=== PATIENT | female | born 1955 | race Caucasian/White ===

== ENCOUNTER 2019-12-12 23:33 | Emergency (ER) | payer MEDICARE, SELFPAY ==
[2019-12-12 23:48] VITALS: BP 175/97; PULSE 69; RESP 18; TEMP 36.7; O2SAT 96
[2019-12-12 23:49] VITALS: BP 175/97; PULSE 69; RESP 18; TEMP 36.7; O2SAT 96
--- NOTE | 2019-12-12 23:51 | ED.ALLEREA ---
HPI - Allergic Reaction General Chief complaint: Allergic Reaction Stated complaint: Possible allergic reaction Time Seen by Provider: 12/12/19 23:51 Source: patient and RN notes reviewed Mode of arrival: ambulatory Limitations: no limitations History of Present Illness HPI narrative: patient was having some upper respiratory cold symptoms. She took an [id number] cold/ flu medication. She began having some hives and itching. Some swelling lower lip. No other difficulty breathing MD complaint: allergic reaction and hives Onset (ago): hour(s) (3-4) Exposure: medication Symptoms: rash, itching and lip swelling Severity: moderate Treatment prior to arrival: none Previous Allergic Reaction History: none Related Data Home Medications Medication Instructions Recorded Confirmed No Home Medications 12/12/19 12/12/19 Allergies Allergy/AdvReac Type Severity Reaction Status Date / Time codeine Allergy Unknown Verified 07/24/16 21:56 Review of Systems Review of Systems: All systems reviewed & are unremarkable except as noted in HPI and below Cardiovascular: Cardiovascular: Denies chest pain Respiratory: Respiratory: Denies dyspnea PMFSH Past Medical History Medical History (Updated 12/13/19 @ 00:09 by Allen Mckeon MD) Hypertension Surgical History Surgical History (Updated 12/12/19 @ 23:58 by Allen Mckeon MD) H/O: hysterectomy History of appendectomy History of tonsillectomy Hx of breast reduction, elective Hx of cholecystectomy Social History Social History (Updated 12/12/19 @ 23:58 by Allen Mckeon MD) Smoking status: Never smoker Alcohol intake: never Substance use: never Exam Const: General: healthy appearing, no acute distress and alert Nutritional Appearance: well nourished Orientation/consciousness: patient oriented x3 HENMT: Ears: external ears normal General nose exam: Normal external nose present Mouth: Yes moist mucous membranes and Yes lip abnormal left lower swelling (Mild) Eyes: Conjunctivae: conjunctivae normal Pupils: Equal, round and reactive pupils present EOM: EOMs intact bilaterally Neck: Neck: normal visual inspection Resp: Effort & Inspection: normal respiratory effort Auscultation: clear to auscultation bilaterally Cardio: Rate: regular rate Rhythm: regular rhythm GI: GI Palp: Yes Soft to palpation and No Tenderness to palpation present (GI) Auscultation: normal bowel sounds Back/Spine/Pelvis: Cervical Spine: cervical ROM normal Thoracic/Lumbar Spine: thoraco-lumbar ROM normal Skin: General skin exam: normal color Rashes: rashes noted hives diffuse multiple locations Neuro: General: patient oriented x3, moves all extremities and no focal motor deficits Speech: normal speech Gait exam (Neuro): Normal gait present Extrem: General: normal to inspection and no clubbing, cyanosis or edema Psych: Appearance: well kempt Affect: normal affect Attitude: cooperative Thought content: Yes Normal thought content present Course Vital Signs Vital signs: Vital Signs Temperature 36.7 C 12/12/19 23:48 Pulse Rate 69 12/12/19 23:48 Respiratory Rate 18 12/12/19 23:48 Blood Pressure 175/97 H 12/12/19 23:48 Pulse Oximetry 96 12/12/19 23:48 Temperature 36.7 C 12/13/19 00:11 Pulse Rate 85 12/13/19 00:11 Respiratory Rate 20 12/13/19 00:11 Blood Pressure 170/94 H 12/13/19 00:11 Pulse Oximetry 97 12/13/19 00:11 MDM - Allergic Reaction Differential Diagnosis Differential diagnosis: Likely allergic reaction, angioedema and adverse reaction to drug Discharge Plan Discharge Clinical Impression: Allergic reaction Qualifiers: Encounter type: initial encounter Qualified Code(s): T78.40XA - Allergy, unspecified, initial encounter Patient Disposition: Home, Self-Care Condition: Improved Instructions: Antibiotic Form, General Allergic Reaction (ED) Additional Instructions: may use Benadryl 25 mg over-th
[2019-12-12 23:56] VITALS: BP 160/91; PULSE 72; RESP 18; O2SAT 97
[2019-12-12] MEDS: diphenhydrAMINE HCl INJ 50 MG/ML VIAL 25 MG IM (23:58)
[2019-12-13 00:11] VITALS: BP 170/94; PULSE 85; RESP 20; TEMP 36.7; O2SAT 97
== END 2019-12-13 00:15 | disposition home or self-care (01) ==
PROVIDERS: Emergency Provider Emergency Medicine; PCP Family Medicine
DX: T78.40XA Allergy, unspecified, initial encounter (principal); I10 Essential (primary) hypertension
CPT/HCPCS: 96372; 99282; 99283; J1200

== ENCOUNTER 2020-07-18 19:43 | Emergency (ER) | payer MEDICARE, SELFPAY ==
[2020-07-18] VITALS (18 sets, daily range): BP systolic 127–150; BP diastolic 61–97; PULSE 63–88; RESP 9–20; TEMP 36.8; O2SAT 91–99
--- NOTE | ~2020-07-18 | XR_ITS ---
EXAMINATION: XR chest 2V EXAM DATE: 07/18/2020 20:17 INDICATION: Medial chest pain. COVID +2 weeks ago. Hypertension. Tingling in fingers. TECHNIQUE: Frontal and lateral projections of the chest obtained and reviewed. Comparison is made to prior examination from 10/27/2018. FINDINGS: The lungs are clear. There are no pleural effusions. Cardiac silhouette is prominent but magnified on this AP technique. There is no pneumothorax suspected. The bones and soft tissues are unremarkable. IMPRESSION: No acute cardiopulmonary findings. Reviewed, dictated and finalized at location A. PHATIC FERTILIZER SUPERVISOR
--- NOTE | ~2020-07-18 | CT_ITS ---
EXAMINATION: CTA chest abdomen pelvis EXAM DATE: 07/18/2020 22:06 INDICATION: Chest pain. Fingers tingling. TECHNIQUE: Spiral CT of the chest, abdomen and pelvis was performed following intravenous injection o f 100 mL Omnipaque 350. Axial, coronal and sagittal images were reviewed. Coronal maximum intensity pixel images of chest reviewed. The dose-length product (DLP) for this examination was 1562.46 mGy- cm. The exposure was tailored according to patient size (auto mA exposure control), and iterative re construction (ASIR) was used as additional dose reduction technique. There is no prior study for dilip ellis. FINDINGS: AORTA: The ascending aorta measures 5.0 cm. There is a type A aortic dissection starting at the aorti c root and extending to the origins of the brachiocephalic and left common carotid arteries. No ruptu re. Descending aorta is normal in caliber and without dissection. CHEST: Dependent subsegmental atelectasis. There are no pleural or pericardial effusions. Tracheo bronchial tree is patent. There is no mediastinal, hilar or axillary lymphadenopathy. There is no pneumothorax. There is cardiomegaly. ABDOMEN PELVIS: The liver, spleen, adrenal glands and pancreas are unremarkable. Gallbladder is unre markable. No biliary obstruction. Portal and splenic veins are patent. Kidneys enhance symmetrical ly. There is no hydronephrosis. Left renal peripelvic cysts. The uterus is not identified and has l ikely been surgically resected. The bladder is unremarkable. There is no retroperitoneal or pelvic lymphadenopathy. There are no findings to suggest appendicitis. The stomach and small bowel are unremarkable. There is expected amount of colonic stool. No free intraperitoneal gas. There are no osteoblastic or os teolytic lesions identified. IMPRESSION: Ascending aortic 5.0 cm aneurysm, with type A dissection. I discussed type A aortic dissection, aneurysm with Han Scott MD at 07/18/2020 22:12 BUDGET OFFICER. Reviewed, dictated and finalized at location A. ET OFFICER IMPRESSION: Ascending aortic 5.0 cm aneurysm, with type A dissection. I discussed type A aortic dissection, aneurysm with Han Scott MD at 2020 22:12 BUDGET OFFICER.
--- NOTE | 2020-07-18 19:51 | ECG_ITS ---
Measurements Intervals [place] Rate: 66 P: 0 ID: 185 QRS: -4 QRSD: 106 T: 63 QT: 403 QTc: 425 Interpretive Statements SINUS RHYTHM LOW QRS VOLTAGE IN PRECORDIAL LEADS INFERIOR INFARCT, AGE INDETERMINATE BASELINE ARTIFACT- I, II, III, AVR, AVL, AVF ABNORMAL ECG Electronically Signed On 07-19-2020 7:07:30 HAND BINDER CUTTER by Kalpesh Licona D.O.
[2020-07-18] MEDS: ONDANSETRON INJ 4 MG/2 ML VIAL IV PUSH (20:04)
[2020-07-18] MEDS: MORPHINE SULFATE (*CRX) 2 MG/ML INJ IV PUSH (20:05)
[2020-07-18 20:15] LABS: Basophils Percent Auto 0.4 % (0.2-1.2); Eosinophils Absolute Auto 0.1 K/mm3 (0-0.3); Eosinophils Percent Auto 0.7 % (0-4.4); Hematocrit 41.5 % (37.0-47.0); Hemoglobin 13.9 g/dL (12.0-15.0); Immature Granulocyte Absolute 0.04 K/mm3 (0.00-0.031); Immature Granulocyte Percent A 0.4 % (0-0.5); Lymphocytes Absolute Auto 1.81 K/mm3 (0.9-3.2); Lymphocytes Percent Auto 19.1 % (18.3-44.2); Mean Corpuscular HGB Conc 33.5 g/dl (32-36); Mean Corpuscular Hemoglobin 31.2 pg (26-34); Mean Platelet Volume 9.9 fl (7.4-10.4); Monocytes Absolute Auto 0.8 K/mm3 (0.1-0.6); Monocytes Percent Auto 8.1 % (2.6-8.5); Neutrophils Absolute Auto 6.8 K/mm3 (1.3-6.7); Neutrophils Percent Auto 71.3 % (45.5-73.1); Platelet Count Result 223 k/mm3 (150-375); Red Blood Count 4.46 M/mm3 (4.2-5.4); Red Cell Distribution Width 12.9 % (11.5-14.5); White Blood Count 9.5 K/mm3 (4.5-10.0)
[2020-07-18 20:25] LABS: INR 0.9; Prothrombin Time 12.2 Seconds (11.1-14.7)
[2020-07-18 20:26] LABS: Partial Thromboplastin Time 24.6 SECONDS (22.3-36.8)
[2020-07-18 20:27] LABS: Anion Gap 5 mmol/L (8-16); Blood Urea Nitrogen 24 mg/dL (7-17); Calcium 8.8 mg/dL (8.4-10.2); Carbon Dioxide 28 mmol/L (22-30); Chloride 107 mmol/L (98-107); Estimated CRCL calculation 38 ml/min; Estimated Glomerular Filt Rate 45; Glucose 106 mg/dL (65-105); Potassium 3.7 mmol/L (3.4-5.0); Sodium 140 mmol/L (137-145)
[2020-07-18 20:39] LABS: Troponin I < 0.012 ng/mL (0.000-0.034)
[2020-07-18] MEDS: HYDROmorphone HCL INJ (*CRX) 1 MG/ML SYR 0.5 MG IV PUSH (21:41)
--- NOTE | 2020-07-18 22:31 | ED.CHESTPAIN ---
HPI - Chest Pain General Chief Complaint: Chest Pain Stated Complaint: cp Time Seen by Provider: 07/18/20 19:48 Source: patient Mode of arrival: EMS Limitations: no limitations History of Present Illness HPI narrative: 64-year-old with a history of GERD, hypertension here with complaints of midsternal chest pain radiating into her back since last half hour. Patient states that pain started soon after she finished her dinner. She denies any nausea or vomiting or shortness of breath. complaint: chest pain Onset (ago): hour(s) (45) Timing of current episode: constant Prior episodes: No Pain location: substernal Pain radiation: back Quality: aching and tearing Relieving factors: nothing Exacerbating factors: nothing Risk Factors Coronary artery disease risk factors: hyperlipidemia and hypertension Thoracic aortic dissection risk factors: none Related Data Home Medications Medication Instructions Recorded Confirmed No Home Medications 12/12/19 12/12/19 Allergies Allergy/AdvReac Type Severity Reaction Status Date / Time codeine Allergy Unknown Other Verified 07/18/20 19:59 Review of Systems Review of Systems: All systems reviewed & are unremarkable except as noted in HPI and below Constitutional: Constitutional: Reports no additional constitutional complaints Eyes: Eyes: Reports no additional eye complaints ENT: Reports system reviewed and no additional complaints, except as documented Cardiovascular: Cardiovascular: Reports as per HPI Respiratory: Respiratory: Reports no additional respiratory complaints Gastrointestinal: Gastrointestinal: Reports no additional gastrointestinal complaints Musculoskeletal: Musculoskeletal: Reports no additional musculoskeletal complaints Integumentary/Breasts: Skin/Breast: Reports system reviewed and no additional complaints, except as docu PMFSH Past Medical History Medical History Hypertension Surgical History Surgical History H/O: hysterectomy History of appendectomy History of tonsillectomy Hx of breast reduction, elective Hx of cholecystectomy Social History Social History Smoking status: Never smoker Alcohol intake: never Substance use: never Exam Narrative: Exam Narrative: GENERAL: Well-appearing, well-nourished, anxious HEAD: Normocephalic, atraumatic. EYES: PERRLA and EOMI. NECK: Supple. CHEST: Clear to auscultation. No respiratory distress. HEART: Regular rate and rhythm. No murmur heard. Normal peripheral pulses. ABDOMEN: Soft, nontender, nondistended, normal active bowel sounds. EXTREMITIES: Normal range of motion. No edema. SKIN: Warm, dry, no rash. NEURO: No focal deficits. Alert and oriented x3. PSYCH: Normal mood and affect. Course Course Emergency Course: Patient continues to have pain CT of the chest and abdomen was done which showed type B dissecting aneurysm. Discussed with the patient and the family. Patient will be transferred to [facility]. I discussed with Dr. Moses accepted the patient in transfer,i discussed with Dr. Zuleta Vital Signs Vital signs: Vital Signs Temperature 36.8 C 07/18/20 19:53 Pulse Rate 66 07/18/20 19:53 Respiratory Rate 18 07/18/20 19:53 Blood Pressure 129/97 H 07/18/20 19:53 Pulse Oximetry 99 07/18/20 19:53 Temperature 36.8 C 07/18/20 19:53 Pulse Rate 67 07/18/20 22:05 Respiratory Rate 16 07/18/20 22:05 Blood Pressure 147/69 H 07/18/20 22:05 Pulse Oximetry 91 07/18/20 22:05 MDM - Chest Pain Lab Data Result diagrams: 07/18/20 20:07 07/18/20 20:06 Labs: Lab Results 07/18/20 07/18/20 07/18/20 Range/Units 20:06 20:06 20:07 WBC 9.5 (4.5-10.0) K/mm3 RBC 4.46 (4.2-5.4) M/mm3 Hgb 13.9 (12.0-15.0) g/dL Hct 41.5 (37.0-47.0) % MCV
[2020-07-18] MEDS: niCARdipine 20 MG/200 ML 20 MG/200 ML BAG 50 MG IV CONT (22:32)
--- NOTE | 2020-07-18 22:53 | PC.NURSE ---
PT. Nicardipine infusing while in route to [facility]
== END 2020-07-18 22:53 | disposition short-term general hospital (02) ==
PROVIDERS: Emergency Medicine; Emergency Provider Family Medicine; PCP Family Medicine
DX: I71.00 Dissection of unspecified site of aorta (principal); I10 Essential (primary) hypertension; K21.9 Gastro-esophageal reflux disease without esophagitis; R94.31 Abnormal electrocardiogram [ECG] [EKG]
CPT/HCPCS: 36415; 71046; 71275; 74174; 80048; 84484; 85025; 85610; 85730; 93005; 96365; 96375; 99291; J1170; J2270; J2405; Q9967

== ENCOUNTER 2023-12-08 09:11 | Emergency (ER) | payer MEDICARE, SELFPAY ==
--- NOTE | ~2023-12-08 | XR_ITS ---
XR knee LT min 4V Ordering provider: Ryan Fox MD History: . pain TO LT KNEE, KNEE GIVES OUT . Comparison: None. FINDINGS: BONES: No acute fracture or dislocation. JOINT SPACES: Normal. SOFT TISSUES: Normal. IMPRESSION: No acute osseous abnormality left knee. Reviewed, dictated and finalized at location A.
[2023-12-08 09:13] VITALS: BP 112/66; PULSE 76; RESP 18; TEMP 36.3; O2SAT 100
--- NOTE | 2023-12-08 10:57 | ED.LOWEXIN ---
HPI - Extremity Injury (Lower) General Chief Complaint: Extremity Injury, Lower Stated Complaint: left knee pain Time Seen by Provider: 12/08/23 10:32 History of Present Illness HPI Narrative: 68-year-old female presents to the emergency room for evaluation of left knee pain. Patient states she has been experiencing knee pain for over 1 week. Denies any injury or trauma. Patient states when she walks she feels like her knee is hyperextending and feels unstable. Related Data Home Medications Medication Instructions Recorded Confirmed No Home Medications 12/12/19 12/12/19 Allergies Allergy/AdvReac Type Severity Reaction Status Date / Time codeine Allergy Unknown Other Verified 07/18/20 19:59 Review of Systems Review of Systems: ROS unremarkable except for noted in HPI PMFSH Past Medical History Medical History Hypertension Surgical History Surgical History H/O: hysterectomy History of appendectomy History of tonsillectomy Hx of breast reduction, elective Hx of cholecystectomy Social History Social History Smoking status: Never smoker Alcohol intake: never Substance use: never Exam Narrative: GENERAL: Well-appearing, well-nourished, no physical limitations, and in no acute distress. HEAD: Normocephalic, atraumatic. EYES: Conjunctivae normal, PERRLA and EOMI. CHEST: Clear to auscultation. No respiratory distress. No wheezes rales or rhonchi. HEART: Regular rate and rhythm. No murmur heard. Normal peripheral pulses. EXTREMITIES: left knee: no ecchymosis, no soft tissue swelling, no obvious bony abnormality, no patellar tracking, tenderness to lateral superior surface. Full range of motion passively. Negative anterior posterior drawer test, no joint laxity, negative McMurrays test SKIN: Warm, dry, no rash. No noted wounds NEURO: No focal deficits. Alert and oriented x3. MAEW. CN's II-XI intact bilaterally, antalgic gait PSYCH: Cooperative. Normal mood and affect. Course Vital Signs Vital signs: Vital Signs Temperature 36.3 C L 12/08/23 09:13 Pulse Rate 76 12/08/23 09:13 Respiratory Rate 18 12/08/23 09:13 Blood Pressure 112/66 12/08/23 09:13 Pulse Oximetry 100 12/08/23 09:13 Oxygen Delivery Room Air 12/08/23 09:13 Temperature 36.3 C L 12/08/23 09:13 Pulse Rate 76 12/08/23 09:13 Respiratory Rate 18 12/08/23 09:13 Blood Pressure 112/66 12/08/23 09:13 Pulse Oximetry 100 12/08/23 09:13 Oxygen Delivery Room Air 12/08/23 09:13 MDM - Extremity Injury (Lower) Imaging Data Radiologist's impression: Impressions Knee X-Ray 12/08/23 09:56 IMPRESSION: No acute osseous abnormality left knee. Discharge Plan Discharge Clinical Impression: Acute pain of left knee Patient Disposition: Home, Self-Care Condition: Stable Instructions: Antibiotic Form Prescriptions: No Action No Home Medications Follow-up/Referrals: Josef,Roque Van MD [Primary Care Provider] - Sekou Wyman MD [Physician] - Time of Disposition: 10:59
== END 2023-12-08 11:22 | disposition home or self-care (01) ==
PROVIDERS: Emergency Provider Nurse Practitioner Family; PCP Family Medicine
DX: M25.562 Pain in left knee (principal); I10 Essential (primary) hypertension; Z90.710 Acquired absence of both cervix and uterus; Z90.49 Acquired absence of other specified parts of digestive tract
CPT/HCPCS: 73564; 99283

== ENCOUNTER 2023-12-15 06:58 | Outpatient (CLI) | payer MEDICARE, SELFPAY ==
--- NOTE | ~2023-12-15 | MR_ITS ---
MRI of the left knee Clinical history: Medial meniscus tear Technique: Coronal proton density and proton density-weighted images, sagittal proton-density and T2 fat-sat images, and axial proton-density fat-saturated images were acquired. Findings: Anterior and posterior cruciate ligaments are intact. Medial collateral ligament and the la teral collateral ligament complex are intact. Popliteus tendon is intact. There is a radial tear at the posterior root of the medial meniscus. No lateral meniscal tear identif ied. 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 There is mild chondral thinning of the femoral tr ochlea. There is patchy moderate chondromalacia of the medial femoral condyle and medial tibial plate au. There is mild chondral thinning of the lateral compartment. Bone marrow signals are unremarkable. Extensor mechanism is intact. There is small joint effusion with small Pedro's cyst. There is nonspec ific soft tissue edema along the posterior aspect of the knee. Impression: Radial tear at the posterior root of the medial meniscus. Nonspecific soft tissue edema posterior to the knee joint, presumably reactive. Patchy chondromalacia throughout the knee, as detailed above, worst at the patellar apex. Small joint effusion and small Pedro's cyst. Reviewed, dictated and finalized at [facility]. Impression: Radial tear at the posterior root of the medial meniscus. Nonspecific soft tissue edema posterior to the knee joint, presumably reactive. Patchy chondromalacia throughout the knee, as detailed above, worst at the reyes llar apex. Small joint effusion and small Pedro's cyst.
== END 2023-12-15 06:59 ==
LOC: MICIMG 06:59
PROVIDERS: PCP Family Medicine; Visit Provider Orthopaedic Surgery
DX: S83.242A Other tear of medial meniscus, current injury, left knee, initial encounter (principal); X58.XXXA Exposure to other specified factors, initial encounter; M71.22 Synovial cyst of popliteal space [Baker], left knee; M25.462 Effusion, left knee
CPT/HCPCS: 73721

== ENCOUNTER 2024-01-18 11:03 | Outpatient (CLI) | payer MEDICARE, SELFPAY ==
--- NOTE | 2024-01-18 11:31 | ECG_ITS ---
Test Date: 2024-01-18 11:45:14 Measurements Intervals [place] Rate: 70 P: 14 NC: 200 QRS: -7 QRSD: 91 T: 52 QT: 370 QTc: 400 Interpretive Statements SINUS RHYTHM INFERIOR MYOCARDIAL INFARCTION [40+ ms Q WAVE AND/OR ST/T ABNORMALITY IN II/aVF], PROBABLY OLD ANTEROLATERAL MYOCARDIAL INFARCTION [40+ ms Q WAVE IN I/aVL/V3-V6], PROBABLY OLD No previous ECG available for comparison Electronically Signed On 01-19-2024 10:13:37 CDT by Eyal Louis M.D.
[2024-01-18 12:18] LABS: Anion Gap 6 mmol/L (4-12); Blood Urea Nitrogen 26 mg/dL (7-17); Calcium 9.3 mg/dL (8.4-10.2); Carbon Dioxide 30 mmol/L (22-30); Chloride 103 mmol/L (98-107); Estimated Glomerular Filt Rate 55; Glucose 79 mg/dL (65-110); Potassium 3.4 mmol/L (3.4-5.0); Sodium 139 mmol/L (137-145)
== END 2024-01-18 11:04 | disposition home or self-care (01) ==
PROVIDERS: Anesthesiology; PCP Family Medicine; Visit Provider Orthopaedic Surgery
DX: Z51.81 Encounter for therapeutic drug level monitoring (principal); I10 Essential (primary) hypertension; Z01.818 Encounter for other preprocedural examination
CPT/HCPCS: 36415; 80048; 93005

== ENCOUNTER 2024-01-20 01:06 | Day surgery (SDC) | payer MEDICARE, SELFPAY ==
[2024-01-15 13:20] VITALS: BMI 36.5
--- NOTE | 2024-01-15 13:50 | PC.NURSE ---
Report to the Outpatient Waiting Room, entrance under the green pavilion located off [facility], at time __1000am on date __01/20/24 . Planned Procedure Time: _1200pm . Time changes happen often and if your time is changed the preop area will call you the afternoon before. - You and your visitor will be asked to self-screen and do not enter if you have any COVID symptoms. - A mask is optional within the hospital at this time. Patients may have clear liquids (water, carbonated beverages, clear teas, apple juice) until 3 hours prior to surgery (0900am) with a maximum of 20 ounces. - No food from midnight until time of surgery. Take the following medications with a SIP of water the morning of surgery: ____Metoprolol, and Tylenol if needed for pain. DO NOT STOP ANY OF YOUR OTHER PRESCRIPTION MEDICATIONS PRIOR TO SURGERY ?EXCEPT THE FOLLOWING Medications to discontinue per physician Pt to call Dr Wyman office about her daily Baby Aspirin dosing, also to get clarification on her preferred preop Scrub & post op walker questions. Date to take last dose____Pt to check with Dr Wyman Please no make-up, nail sinhala, hairspray, perfume, deodorant, or body powder the day of surgery. No jewelry (including any body piercings) or valuables the day of surgery, leave them at home. Please take a shower or bath the night before, or the morning of, surgery with an antibacterial soap. Wear comfortable, loose fitting clothing. Children are encouraged to wear pajamas. - Jewelry must be removed prior to entering the operating room. Rings and piercings that are not removed may be cut off. - The hospital will not accept responsibility for valuables. - Please leave all valuables, including medications, at home the day of surgery. If you are going home after surgery, a licensed charter bus driver must drive you home. - NO public transportation without another adult if you receive anesthesia. - We recommend that an adult stay with you for 24 hours following discharge. - We also recommend that you do not drive, make important decision, drink alcoholic beverages, or take any drugs that were not prescribed by your health care provider for at least 24 hours after your discharge time. Follow any additional instructions given to you from your surgeon. If you or anyone in your household have experienced Covid symptoms in the past week, please notify your surgeon or the nurse liaison at the phone number below for possible testing. Telephone instructions given to patient and asked if any additional questions and then verbalized understanding. Patient advised to call surgeon office or pre surgery nurse liaison [phone] if any additional questions.
--- NOTE | 2024-01-19 08:00 | PM.IMHP ---
H&P: HPI History of Present Illness Date/Time: 01/19/24 08:00 Chief Complaint: Patient is locking and catching of her left knee. She has a meniscal tear. She has failed conservative treatment like to proceed with the arthroscopy partial meniscectomy proceed as indicated left knee. Review of Systems Musculoskeletal: Musculoskeletal: Reports arthralgias, Reports joint swelling and Reports stiffness PMFSH Past Medical History Medical History Hypertension Surgical History Surgical History H/O: hysterectomy History of appendectomy History of tonsillectomy Hx of breast reduction, elective Hx of cholecystectomy Family History Family History Father , brain aneurism No problems noted. Mother Hypertension CHF (congestive heart failure) Diabetes mellitus Kidney disease Sibling , brain aneurism No problems noted. Social History Social History Smoking status: Never smoker Second hand tobacco smoke exposure: Yes Alcohol intake: never Substance use: never Substance use type: does not use Do You Feel Safe in your Home?: Yes Lack of Transportation: No Lack of Food: Never True Current Housing: I Have Housing Concerned About Future Housing: No Difficulty Paying Gas/Electric Bills: No Difficulty Paying for Meds: No Currently Unemployed: No Education: High School Diploma/GED Difficulty w/ Childcare or Family Care: No Living arrangements: with family Additional living arrangements comments: Partner Occupation/Education: retired Additional occupation/education comments: Seamstress Gender identity (if verbalized by the patient): Female Spiritual care concerns: No Meds Home Medications and Allergies Home Medications Medication Instructions Recorded Confirmed Type aspirin 81 mg tablet,delayed 81 mg PO DAILY 12/10/23 01/15/24 History release (Adult Low Dose Aspirin) hydrochlorothiazide 12.5 mg capsule 12.5 mg PO DAILY 12/10/23 01/15/24 History irbesartan 300 mg tablet 300 mg PO DAILY 12/10/23 01/15/24 History isosorbide dinitrate 30 mg tablet 30 mg PO BID 12/10/23 01/15/24 History metoprolol succinate 100 mg 100 mg PO DAILY 12/10/23 01/15/24 History capsule sprinkle, ext. release 24 hr omeprazole 20 mg capsule,delayed 20 mg PO BID 12/10/23 01/15/24 History release Allergies Allergy/AdvReac Type Severity Reaction Status Date / Time codeine AdvReac Severe Hallucinati Verified 01/15/24 13:14 ng Exam Narrative: On exam she is tender over the medial joint line has a positive Brigida's. Neurologically she is grossly intact. The left knee is stable as pain to palpation manipulation. She has mechanical catching and locking. Eyes: General: appearance normal, both eyes and all related structures Neck: Neck: supple Resp: Effort & Inspection: normal respiratory effort Cardio: Rate: regular rate Rhythm: regular rhythm Assessment and Plan Assessment and plan (1) Acute medial meniscus tear of left knee: Code(s): S83.242A - Other tear of medial meniscus, current injury, left knee, initial encounter Status: Acute Assessment and Plan: Patient is knee pain right. She has mechanical catching and locking consistent with meniscal pathology. She has failed conservative treatment like to proceed with arthroscopy partial meniscectomy proceed as indicated left knee. I have discussed this with her in detail risks benefits limitations and alternatives. Will proceed per her request.
[2024-01-20] VITALS (8 sets, daily range): BP systolic 100–126; BP diastolic 34–69; PULSE 53–69; RESP 12–18; TEMP 36.2; O2SAT 95–100
--- NOTE | 2024-01-20 10:08 | WPDHPUPDATE1 ---
History and Physical Update Update Date/Time: 01/20/24 10:08 History and Physical has been reviewed, including an updated exam of the patient. There are NO changes in the patient's condition. Risks, benefits, and alternatives have been discussed and questions answered. Patient agrees to proceed with procedure.
--- NOTE | 2024-01-20 10:28 | WPDANESEPPF ---
Anes - Initial Pre Proc Eval Procedure: Operation Date: 01/20/24 12:00 Proposed Procedures p Left Knee Arthroscopy, Partial Medial Meniscectomy, Proceed As Indicated - Sekou Wyman MD Date/Time: 01/20/24 10:28 Surgeon: Sekou Wyman MD Pre Op Diagnosis: left medial meniscal tear Patient Data Age: 68 Gender: F Height: 1.5 m Weight: 82 kg Allergies Allergy/AdvReac Type Severity Reaction Status Date / Time codeine AdvReac Severe Hallucinati Verified 01/20/24 10:25 ng Home Medications Medication Instructions Recorded Confirmed Type aspirin 81 mg tablet,delayed 81 mg PO DAILY 12/10/23 01/15/24 History release (Adult Low Dose Aspirin) hydrochlorothiazide 12.5 mg capsule 12.5 mg PO DAILY 12/10/23 01/15/24 History irbesartan 300 mg tablet 300 mg PO DAILY 12/10/23 01/15/24 History isosorbide dinitrate 30 mg tablet 30 mg PO BID 12/10/23 01/15/24 History metoprolol succinate 100 mg 100 mg PO DAILY 12/10/23 01/15/24 History capsule sprinkle, ext. release 24 hr omeprazole 20 mg capsule,delayed 20 mg PO BID 12/10/23 01/15/24 History release Patient hx anesthesia problems: none Family hx anesthesia problems: none Results Review: All pre-operative results and documents have been reviewed as part of the pre-operative evaluation. [facility] Past Medical History Medical History Hypertension Surgical History Surgical History H/O: hysterectomy History of appendectomy History of tonsillectomy Hx of breast reduction, elective Hx of cholecystectomy Family History Family History Father , brain aneurism No problems noted. Mother Hypertension CHF (congestive heart failure) Diabetes mellitus Kidney disease Sibling , brain aneurism No problems noted. Social History Social History Smoking status: Never smoker Second hand tobacco smoke exposure: Yes Alcohol intake: never Substance use: never Substance use type: does not use Do You Feel Safe in your Home?: Yes Lack of Transportation: No Lack of Food: Never True Current Housing: I Have Housing Concerned About Future Housing: No Difficulty Paying Gas/Electric Bills: No Difficulty Paying for Meds: No Currently Unemployed: No Education: High School Diploma/GED Difficulty w/ Childcare or Family Care: No Living arrangements: with family Additional living arrangements comments: Partner Occupation/Education: retired Additional occupation/education comments: Seamstress Gender identity (if verbalized by the patient): Female Spiritual care concerns: No Anes - Eval Final PreProcedure Day of Procedure 01/20/24 10:28 Patient weight: obese Heart: regular rate and rhythm Lungs: clear to auscultation Airway: Mallampati scale class II Neurological: alert and oriented Last oral intake: >/= 8 hours ASA classification: III Emergent: no Anesthetic plan: proceed Anesthesia type and monitoring: general LMA and standard monitoring Results Review: All pre-operative results and documents have been reviewed as part of the pre-operative evaluation. HTN, hx of aortic aneurysm repair emergently approx 2020 at [place]. Pt reports repeat CT last month stable and actually improved. EKG reviewed and tombstone erector eval notes no contraindication to proceed w surgery. Informed Consent: The patient's anesthetic plan and its attendant risks and benefits were discussed with the patient/family/POA. Questions were solicited and answers provided to the satisfaction of the patient/family/POA.
[2024-01-20] MEDS: ACETAMINOPHEN 500 MG TABLET 1000 MG PO (10:35)
[2024-01-20] MEDS: LACTATED RINGERS 1,000 ML 30 ML IV CONT (10:50)
[2024-01-20] MEDS: KETOROLAC 15 MG/ML VIAL (*BKC) IV PUSH (10:51)
[2024-01-20] MEDS: ceFAZolin 2 GM/D5W 50 ML 2 GM/50 ML BAG IVPB (10:55)
[2024-01-20] MEDS: LIDO 1%/EPINEPHRINE 1:100,000 20 ML VIAL 10 ML INFILTRATE (11:33)
--- NOTE | 2024-01-20 11:33 | W.PM.PROC2 ---
Procedure Note - Detailed Date of Procedure 01/20/24 Pre-op Diagnosis LEFT knee medial meniscal tear Post-op Diagnosis Same Procedure Performed LEFT knee arthroscopy with partial meniscectomy Surgeon Sekou Wyman MD Anesthesia General Description of Procedure Patient brought to operating room # 7. An anesthetic was administered. The knee was sterilely prepped and draped in the usual manner. Standard portals were used. Superior medial portal was used for the outflow cannula, inferior lateral portal was used for the scope, inferior medial portal was used for the instruments. Arthroscopy was performed, the patellar femoral joint degenerative changes. The medial compartment showed a complex tear. The lateral compartment showed fraying. The ACL was intact. Using baskets and sherie the meniscal tear was trimmed back to a stable base so the nothing further could be pulled into the joint. Any loose or delaminated fragments were gently trimmed to a stable base. At this point the instruments were withdrawn, sutures placed and patient left the operating room in satisfactory condition. Estimated Blood Loss 20 Drains No Packing No Pathology None sent Complications No immediate complications Condition Stable Disposition PACU [facility] Billing Surgery - Charge Forward: Surgery Billing (12505 Arthroscopy, partial menisectomy)
[2024-01-20] MEDS: oxyCODONE HCL (*CRX) 5 MG TAB IR PO (12:56)
== END 2024-01-20 13:25 | disposition home or self-care (01) ==
PROVIDERS: PCP Family Medicine; Visit Provider Orthopaedic Surgery
PROC: (CPT 29870; principal; 2024-01-20 12:00)
DX: S83.232A Complex tear of medial meniscus, current injury, left knee, initial encounter (principal); M17.12 Unilateral primary osteoarthritis, left knee; I10 Essential (primary) hypertension; E66.9 Obesity, unspecified; Z68.36 Body mass index [BMI] 36.0-36.9, adult; Z79.82 Long term (current) use of aspirin; Z98.890 Other specified postprocedural states; Z90.49 Acquired absence of other specified parts of digestive tract; Z82.49 Family history of ischemic heart disease and other diseases of the circulatory system; X58.XXXA Exposure to other specified factors, initial encounter
CPT/HCPCS: 29881; A9270; J0690; J1100; J1885; J2405; J2704; J3010; J7120